=== PATIENT | male | born 1995 ===

== ENCOUNTER → 2023-12-31 06:31 | Day surgery (SDC) | payer BC, SELFPAY | LOC: GI 06:31 | PROVIDERS: ATTENDING PHYSICIAN Internal Medicine | DX: K58.0 Irritable bowel syndrome with diarrhea (principal); K62.5 Hemorrhage of anus and rectum; K57.30 Diverticulosis of large intestine without perforation or abscess without bleeding; R14.0 Abdominal distension (gaseous); K22.89 Other specified disease of esophagus; K20.90 Esophagitis, unspecified without bleeding; K31.89 Other diseases of stomach and duodenum; R76.8 Other specified abnormal immunological findings in serum; K90.0 Celiac disease | CPT/HCPCS: 45380; 43239; 88305; 88342 ==